=== PATIENT | female | born 1995 | race Caucasian/White ===

== ENCOUNTER 2017-08-20 08:18 | Outpatient (CLI) | payer OTHER ==
[2017-08-20 09:49] VITALS: BP 145/84; PULSE 98; RESP 16; TEMP 98.7
--- NOTE | 2017-09-01 13:47 | P.MSEPDOC ---
Presenting Problems - Arrival Data Date of Arrival on Unit: 08/20/17 Time of Arrival on Unit: 08:17 Mode of Transport: Ambulatory - Complaint OB-Reason for Admission/Chief Complaint: Possible Onset of Labor Medical History - Information : 1 Para: 0 Term: 0 : 0 Abortions: Spontaneous or Elective: 0 Number of Living Children: 0 - Gestational Age Gestational Age by SREEDHAR (wks/days): 39 Weeks and 3 Days - History Complications: GDM Review of Systems - Review of Systems Constitutional: No problems Breast: No problems ENT: No problems Cardiovascular: No problems Respiratory: No problems Gastrointestinal: No problems Genitourinary: No problems Musculoskeletal: No problems Neurological: No problems Skin: No problems Vital Signs - Temperature Temperature: 98.7 F - Pulse Right Brachial Pulse Rate: 98 Pulse Assessment Method: Automatic Cuff - Respirations Respiratory Rate: 16 Oxygen Delivery Method: Room Air - Blood Pressure Right Arm Blood Pressure: 145/84 Blood Pressure Mean: 104 Blood Pressure Source: Automatic Cuff Medical Screen Scoring (Pre) - Cervical Exam Dilation: 1-3 cm = 1 Effacement: More than 50% = 2 Membranes: Intact - Uterine Contractions Frequency: > or = 36 weeks =2 Duration: > 40 seconds = 2 - Maternal Vital Signs Maternal Temperature: N/A Maternal Blood Pressure: N/A Signs of Preeclampsia: N/A Maternal Respirations: N/A - Pain Assessment Pain Location and Character: Abdomen Pain Scale Used: Numeric (1 - 10) Pain Intensity: 6 Pain Management Goal: 4 Pain Description: *Acute Pain Radiation Location: na Pain Frequency: Intermittent Pain Duration: 2 Pain Duration Units: Minutes Pain Behavior: None Exhibited Pain Aggravating Factors: None Non-Pharmacological Interventions: Relaxation Technique - Total Score Total Score (Pre): 7 - Level of Risk Level of Risk: Medium (6-9) Physician Notification (Pre) - Physician Notified Physician Notified Date: 08/20/17 Physician Notified Time: 09:30 Physician/Practitioner Notifed:: Dr. Samuel Spoke With: Dr. Samuel New Order Received: Yes - Notification Comment Comment: orders received to keep another hour and have pt walk the halls. Medical Screen Scoring (Post) - Cervical Exam Dilation: 1-3 cm = 1 Effacement: More than 50% = 2 Membranes: Intact - Uterine Contractions Frequency: > or = 36 weeks =2 Duration: > 40 seconds = 2 Intensity: N/A - Maternal Vital Signs Maternal Temperature: N/A Maternal Blood Pressure: N/A Signs of Preeclampsia: N/A - Pain Assessment Pain Location and Character: Abdomen Pain Scale Used: Numeric (1 - 10) Pain Intensity: 6 Pain Management Goal: 4 Pain Description: *Acute Pain Radiation Location: na Pain Frequency: Intermittent Pain Duration: 2 Pain Duration Units: Minutes Pain Behavior: Vocalization Pain Aggravating Factors: None - Assessment Heart Rate: 135 Heart Rate - NICHD Category: Category I (Normal) = 0 NST: Reactive Position: N/A - Total Score Total Score (Post): 7 - Post Treatment Level of Risk Post Treatment Level of Risk: Medium (6-9) Physician Notification (Post) - Physician Notified Physician Notified Date: 08/20/17 Physician Notified Time: 10:30 Physician/Practitioner Notified:: Dr. Samuel Spoke With: Dr. Samuel New Order Received: Yes - Notification Comment Comment: orders to d/c home Disposition - Disposition OB Disposition: Discharge to home Discharge Date: 08/20/17 Discharge Time: 10:40 I agree with the RN Medical Screening Exam: Yes Risk & Benefit of care provided described in d/c instruction: Yes Diagnosis: FALSE LABOR AT OR AFTER 37 COMPLETED WEEKS OF GESTATION
== END 2017-08-20 10:40 | disposition home or self-care (01) ==
LOC: FBPOP 08:18
PROVIDERS: ATTEND Obstetrics & Gynecology
DX: O47.1 False labor at or after 37 completed weeks of gestation (principal); Z3A.39 39 weeks gestation of pregnancy
CPT/HCPCS: 59025; 99213

== ENCOUNTER 2017-08-21 15:14 | Inpatient (IN) | payer OTHER ==
[2017-08-21] MEDS ORDERED: LIDOCAINE 1% (PF) 10 MG/ML (30 ML SDV) SQ PRN (15:56)
[2017-08-21] MEDS ORDERED: OXYTOCIN 10 UNIT/ML 1 ML VIAL IM PRN (15:56)
[2017-08-21] MEDS ORDERED: METHYLERGONOVINE 0.2 MG/ML 1 ML AMP IM PRN (15:56)
[2017-08-21] MEDS ORDERED: PENICILLIN G POTASSIUM 5,000,000 UNIT in DEXTROSE 5% IN WATER 100 ML IVPB STA ×2 (15:56)
[2017-08-21] MEDS ORDERED: CARBOPROST TROMETHAMINE 250 MCG/ML 1 ML AMP IM PRN (15:56)
[2017-08-21] MEDS ORDERED: TERBUTALINE 1 MG/ML VIAL SQ PRN (15:56)
[2017-08-21] MEDS: LACTATED RINGERS 1,000 ML IV SCH (16:00)
[2017-08-21] MEDS ORDERED: BUTORPHANOL 1 MG/ML 1 ML VIAL IV PRN (16:15)
[2017-08-21 16:16] LABS: Basophils % (A) 0 %; CH 27.6; CHCM 32.4; Eosinophils % (A) 0 %; HDW 2.57; HGB 12.4 gm/dL (11.4-16.0); Luc # (Auto) 0.15; Luc % (Auto) 1; Lymphocytes # (A) 1.1 k/uL (1.0-4.8); Lymphocytes % (A) 9 %; MCH 27.2 pg (25.0-35.0); MCHC 31.7 g/dL (31.0-37.0); MCV 85.7 fL (80.0-100.0); Mean Platelet Volume 8.7; Monocytes # (A) 0.6 k/uL (0-1.0); Monocytes % (A) 5 %; Neutrophils # (A) 10.4 k/uL (1.3-7.7); Neutrophils % (A) 85 %; RBC 4.55 m/uL (3.80-5.40); RDW 15.4 % (11.5-15.5); WBC 12.3 k/uL (3.8-10.6); WBC (Perox) 12.11
[2017-08-21] MEDS ORDERED: SODIUM CHLORIDE 0.9% 100 ML BAG ONE (16:21)
[2017-08-21] MEDS ORDERED: fentaNYL (PF) 50 MCG/ML 5 ML AMP ONE (16:21)
[2017-08-21] MEDS ORDERED: BUPIVACAINE (PF) 0.25% 30 ML VIAL ONE (16:21)
--- NOTE | 2017-08-21 16:22 | P.HPOB ---
History of Present Illness H&P Date: 08/21/17 Chief Complaint: 39-4/7 weeks, active labor the patient is a 21-year-old 1 para 0 admitted at 39-4/7 weeks as established by last menstrual period and confirmed by 19 week ultrasound. She is admitted in active labor with her cervix approximate 6 cm dilated. She has been carlos since yesterday in the afternoon when she previously presented to triage and made no cervical change. On admission, all signs reassuring. Her has been complicated by presumptive gestational diabetes as she could not tolerate the one hour Glucola. testing after 32 weeks was entirely within normal limits and reassuring and her blood sugars were normal throughout. She additionally is known to be Rh- and received RhoGAM at 28 weeks. Lastly she was also found to be group B strep positive. Obstetrical history: 1 para 0 with current statistics listed above. EDC of 08/24/2017 was established by last menstrual period and confirmed by 19 week ultrasound. Laboratory workup demonstrates a blood type of A- with a negative antibody screen. Rubella status is immune. The remainder of her laboratory workup was within normal limits though she did have an ASCUS Pap smear which will be repeated . Initial Glucola was elevated, however she could not tolerate the three-hour glucose tolerance test and therefore has been treated as a gestational diabetic since that time with normal blood sugars throughout as noted above. Group B strep status is positive. gynecologic history: Unremarkable with no history of any infections to include STDs. Review of Systems review of systems is confined to history of present illness. Past Medical History Additional Past Medical History / Comment(s): Hernia History of Any Multi-Drug Resistant Organisms: None Reported Past Surgical History: No Surgical Hx Reported Past Anesthesia/Blood Transfusion Reactions: No Reported Reaction Smoking Status: Never smoker Medications and Allergies Home Medications Medication Instructions Recorded Confirmed Type Pnp-Syjx-Mpqxh Acid 1 cap PO DAILY 06/15/17 08/21/17 History [-U Capsule (formulary)] Allergies Allergy/AdvReac Type Severity Reaction Status Date / Time No Known Allergies Allergy Verified 08/21/17 15:26 Exam - Vital Signs Vital signs: Vital Signs Temp Pulse Resp BP 08/21/17 15:58 97.2 F L 100 18 139/88 Intake and Output 08/21/17 08/21/17 08/21/17 06:59 14:59 22:59 Other: Weight 58.513 kg Patient Weight 08/22/17 06:59 Weight 58.513 kg general, this is a well-developed, well-nourished white female in no acute distress. Her heart has a regular rhythm and rate without murmur. Her lungs are clear to auscultation bilaterally in all galindo. Her abdomen is gravid, nondistended, has normal active bowel sounds, is soft, nontender, and without any palpable masses aside from uterine fundus. Her extremities are without any cyanosis, clubbing, or edema and are nontender to palpation bilaterally. Digital cervical examination demonstrates her cervix to be centimeters dilated, 100% effaced, the vertex in presentation at -2 station. There is a bulging bag of water present. Assessment and Plan (1) Active labor at term Current Visit: Yes Status: Acute Code(s): RVK3013 - SNOMED Code(s): 88331042 (2) Group B streptococcal carriage complicating Current Visit: Yes Status: Acute Code(s): O99.820 - STREPTOCOCCUS B CARRIER STATE COMPLICATING SNOMED Code(s): 213733593839169 (3) Rh negative status during Current Visit: Yes Status: Acute Code(s): O09.899 - SUPERVISION OF OTHER HIGH RISK PREGNANCIES, UNSP TRIMESTER SNOMED Code(s): 761496949 (4) Gestational diabetes Current Visit: Yes Status: Acute Code(s): O24.419 - GESTATIONAL DIABETES MELLITUS IN , UNSP CONTROL SNOMED Code(s): 26453056 Plan: age and is admitted for active management of labor. She has requested an epidural catheter for analgesia which will be placed shortly. She will then undergo artificial rupture of membranes. Antibiotics have been ordered for group B strep prophylaxis. Should she made no significant progress after rupture of membranes, Pitocin augmentation will be added. She will continue undergo close maternal and surveillance and expectant management will continue to be practiced.
[2017-08-21] MEDS ORDERED: BUPIVACAINE (PF) 0.25% 25 ML, fentaNYL (PF) 200 MCG in SODIUM CHLORIDE 0.9% 71 ML EPIDURAL ONE (16:40)
[2017-08-21 16:52] VITALS: BMI 22.1
[2017-08-21] MEDS ORDERED: HYDROCORTISONE 2.5% RECTAL CREAM 30 GM TUBE RECTAL PRN (20:16)
[2017-08-21] MEDS ORDERED: diphenhydrAMINE 50 MG/ML 1 ML VIAL IVP PRN ×2 (20:16)
[2017-08-21] MEDS ORDERED: LANOLIN CREAM 5 GM TUBE TOPICAL PRN (20:16)
[2017-08-21] MEDS ORDERED: ZOLPIDEM 5 MG TAB PO PRN (20:16)
[2017-08-21] MEDS ORDERED: SIMETHICONE 80 MG CHEWABLE PO PRN (20:16)
[2017-08-21] MEDS ORDERED: Acetaminophen-Codeine 300-30mg TAB PO PRN (20:16)
[2017-08-21] MEDS ORDERED: diphenhydrAMINE 50 MG CAP PO PRN (20:16)
[2017-08-21] MEDS ORDERED: ACETAMINOPHEN TAB 325 MG TAB PO PRN (20:16)
[2017-08-21] MEDS ORDERED: BENZOCAINE/MENTHOL SPRAY 1 GM/SPRAY AEROSOL TOPICAL PRN (20:16)
[2017-08-21] MEDS ORDERED: diphenhydrAMINE 25 MG CAP PO PRN (20:16)
[2017-08-21] MEDS ORDERED: WITCH HAZEL 1 EACH MED..PAD TOPICAL PRN (20:16)
--- NOTE | 2017-08-21 20:16 | P.PROBDLV ---
Vaginal Delivery Note - . Vaginal Delivery Note: Findings: Female in the vertex occiput anterior position. Apgars of 9 at 1 minute and 10 at 5 minutes. Weight 5 lbs. 10 oz., 2555 g. Second-degree perineal laceration. Intact, three-vessel cord placenta. EBL 150 mL's. Delivery summary: This is a 21-year-old 1 para 0 woman with an estimated due date of 08/24/2017 who presents at 39-4/7 weeks gestation in active labor. She's had an uncomplicated . Blood type is A- and she is group B strep positive. Following admission prophylactic antibiotics were initiated per protocol. She was 6+ centimeters dilated on admission. She underwent artificial rupture of membranes at 1633 and clear fluid was noted. She reached complete cervical dilation by 1903. She had received an epidural anesthetic and was very comfortable. She began pushing with excellent maternal effort and after an approximately 1 hour second stage of labor she was repositioned, prepped and draped in the modified lithotomy position. With additional maternal effort the head delivered from the left occiput anterior position. Nose and mouth were bulb suctioned. The rest the was rapidly delivered onto the field where the nose and mouth were further bulb suctioned. The was placed on the maternal abdomen. After the cord stopped pulsating infant was cut and the was taken to the warmer for further evaluation. Apgars were 9 at 1 minute and 10 at 5 minutes. Perineum was inspected and a second-degree laceration was noted. This was repaired in the usual fashion with 3-0 Vicryl suture. An intact, three-vessel cord placenta was then expressed and the uterus was massaged and noted to be firm below the level of the umbilicus. The vagina was reinspected and no further lacerations were along the entirety of the right vulvar crease but this was not actively bleeding. All counts were correct and both mother and infant were doing well post delivery in the room.
[2017-08-21] MEDS ORDERED: OXYTOCIN 20 UNITS/1000 ML NS 1,000 ML IV SCH (20:30)
[2017-08-21] MEDS: IBUPROFEN 600 MG TAB PO PRN (23:25)
[2017-08-22] MEDS ORDERED: Rhogam IMMUNE GLOBULIN 1,500 UNIT/1 ML IM ONE (01:11)
[2017-08-22] MEDS: IBUPROFEN 600 MG TAB PO PRN ×3 (05:17→23:58)
--- NOTE | 2017-08-22 08:47 | P.PNOBGVD ---
Subjective - Subjective Patient reports: Reports appetite normal, Reports voiding normally, Reports pain well controlled, Reports ambulating normally : doing well Objective - Latest Vital Signs Latest vital signs: Vital Signs Temp Pulse Resp BP Pulse Ox 08/22/17 04:00 97.8 F 84 16 114/56 97 08/22/17 00:00 98.2 F 84 16 100/62 97 08/21/17 22:04 98.5 F 87 16 125/69 08/21/17 21:34 90 16 132/74 08/21/17 21:04 106 H 16 123/70 08/21/17 20:49 82 16 114/70 08/21/17 20:34 83 16 110/66 08/21/17 20:19 96 16 128/66 08/21/17 20:03 100 18 122/64 08/21/17 16:45 97.2 F L 100 18 08/21/17 15:58 97.2 F L 100 18 139/88 Intake and Output 08/21/17 08/22/17 08/22/17 22:59 06:59 14:59 Other: # Voids 1 1 Weight 58.513 kg - Exam Extremities: Present: normal Abdomen: Present: normal appearance, soft Uterus: Present: normal, firm (The uterine fundus as tonic and nontender at the umbilicus.) - Labs Labs: Abnormal Lab Results - Last 24 Hours (Table) 08/21/17 Range/Units 16:00 WBC 12.3 H (3.8-10.6) k/uL Neutrophils # 10.4 H (1.3-7.7) k/uL Assessment and Plan (1) Active labor at term Current Visit: Yes Status: Acute Code(s): ANF3666 - SNOMED Code(s): 16027000 (2) Group B streptococcal carriage complicating Current Visit: Yes Status: Acute Code(s): O99.820 - STREPTOCOCCUS B CARRIER STATE COMPLICATING SNOMED Code(s): 882513293401391 (3) Rh negative status during Current Visit: Yes Status: Acute Code(s): O09.899 - SUPERVISION OF OTHER HIGH RISK PREGNANCIES, UNSP TRIMESTER SNOMED Code(s): 597821036 (4) Gestational diabetes Current Visit: Yes Status: Acute Code(s): O24.419 - GESTATIONAL DIABETES MELLITUS IN , UNSP CONTROL SNOMED Code(s): 19353129 (5) (normal spontaneous vaginal delivery) Current Visit: Yes Status: Acute Code(s): O80 - ENCOUNTER FOR FULL-TERM UNCOMPLICATED DELIVERY SNOMED Code(s): 94932430 Plan: The infant will continue to be observed for 48 hours as antibiotic prophylaxis had not been initiated early enough. As result, the patient will continue to have close maternal observation and routine care practiced. I do anticipate discharge home tomorrow pending no complications.
[2017-08-22] MEDS: PENICILLIN G POTASSIUM 2,500,000 UNIT in DEXTROSE 5% IN WATER 100 ML IVPB SCH ×2 (09:22)
[2017-08-22] MEDS: LACTATED RINGERS 1,000 ML IV SCH ×2 (09:23→09:24)
[2017-08-22] MEDS: SENNOSIDES-DOCUSATE SODIUM 1 EACH TAB PO SCH ×2 (09:31→19:35)
[2017-08-23] MEDS: IBUPROFEN 600 MG TAB PO PRN ×3 (07:39→19:57)
[2017-08-23] MEDS: SENNOSIDES-DOCUSATE SODIUM 1 EACH TAB PO SCH ×2 (07:39→19:57)
--- NOTE | 2017-08-23 08:57 | P.DS ---
Providers Date of admission: 08/21/17 15:41 Expected date of discharge: 08/23/17 Attending physician: Ghazala Kennedy Primary care physician: Stated None - Discharge Diagnosis(es) (1) Active labor at term Current Visit: Yes Status: Acute (2) Group B streptococcal carriage complicating Current Visit: Yes Status: Acute (3) Rh negative status during Current Visit: Yes Status: Acute (4) Gestational diabetes Current Visit: Yes Status: Acute (5) (normal spontaneous vaginal delivery) Current Visit: Yes Status: Acute Hospital Course: The patient is a 21-year-old 1 para 0 admitted at 39-4/7 weeks in active labor. Her was uncomplicated though she was Rh- and group B strep positive. She did have antibiotic prophylaxis started and underwent artificial rupture of membranes. She progressed fairly quickly to complete after which time she pushed to a normal spontaneous vaginal delivery of a viable 5 lbs. 10 oz. baby girl with Apgars of 9 at 1 minute and 10 at 5 minutes. Her course was unremarkable vital signs remaining stable and her temperature was afebrile throughout. She was deemed stable for discharge by post day #2 was discharged home to follow-up in the office in 6 weeks' time routinely. Discharge instructions included calling for any significantly increased bleeding or foul-smelling lochia, significantly increased fever or abdominal pain, perineal complaints, breast complaints, or anything else that concerned her. She was additionally instructed to have nothing in the vagina for at least 6 weeks time to include intercourse. She understood her instructions and agrees to follow up as noted above. Discharge medications included continue vitamins as she has opted to breast- feed. She additionally was to use omlr-tja-avyrrbc analgesic pain medications as needed. Maternal blood type is A- and cord blood was sent for evaluation for the necessity of RhoGAM prior to discharge. Rubella status is immune. Procedures: #1. Antibiotic prophylaxis #2. Artificial rupture of membranes #3. Normal spontaneous vaginal delivery #4. Repair of perineal laceration #5. Epidural analgesia Patient Condition at Discharge: Good Plan - Discharge Summary New Discharge Prescriptions: No Action Zel-Tcoa-Smbbq Acid [-U Capsule (formulary)] 1 cap PO DAILY Discharge Medication List Ojh-Qxyh-Qtswv Acid [-U Capsule (formulary)] 1 cap PO DAILY 10/31 [History] Follow up Appointment(s)/Referral(s): Sadiq Samuel MD [STAFF PHYSICIAN] - 6 Weeks Discharge Disposition: HOME SELF-CARE
[2017-08-23 13:15] VITALS: PULSE 71
[2017-08-23 17:11] VITALS: BP 118/72; RESP 18; TEMP 97.7
== END 2017-08-23 20:10 | disposition home or self-care (01) | DRG 775 ==
LOC: FBPOP 15:14 → 4FBP 15:41
PROVIDERS: ADMIT Obstetrics & Gynecology; ATTEND Obstetrics & Gynecology
PROC: 10907ZC Drainage of Amniotic Fluid, Therapeutic from Products of Conception, Via Natural or Artificial Opening (ICD-10-PCS; principal; 2017-08-21)
PROC: 3E0R3BZ Introduction of Anesthetic Agent into Spinal Canal, Percutaneous Approach (ICD-10-PCS; principal; 2017-08-21)
PROC: 0KQM0ZZ Repair Perineum Muscle, Open Approach (ICD-10-PCS; principal; 2017-08-21)
PROC: 00HU33Z Insertion of Infusion Device into Spinal Canal, Percutaneous Approach (ICD-10-PCS; principal; 2017-08-21)
PROC: 10E0XZZ Delivery of Products of Conception, External Approach (ICD-10-PCS; principal; 2017-08-21)
DX: O24.429 Gestational diabetes mellitus in childbirth, unspecified control (principal); O26.893 Other specified pregnancy related conditions, third trimester; Z37.0 Single live birth; O99.824 Streptococcus B carrier state complicating childbirth; O70.1 Second degree perineal laceration during delivery; Z3A.39 39 weeks gestation of pregnancy; Z67.91 Unspecified blood type, Rh negative
CPT/HCPCS: 59025; 83036; 85025; 85461; 88307; 99213

== ENCOUNTER 2019-09-30 05:41 | Inpatient (IN) | payer BC ==
[2019-09-30] MEDS ORDERED: OXYTOCIN 10 UNIT/ML 1 ML VIAL IM PRN (05:58)
[2019-09-30] MEDS ORDERED: LIDOCAINE 0.5% (PF) 5 MG/ML (50 ML SDV) SQ PRN (05:58)
[2019-09-30] MEDS ORDERED: METHYLERGONOVINE 0.2 MG/ML 1 ML AMP IM PRN (05:58)
[2019-09-30] MEDS ORDERED: PENICILLIN G POTASSIUM 5,000,000 UNIT in DEXTROSE 5% IN WATER 100 ML IVPB STA ×2 (05:58)
[2019-09-30] MEDS ORDERED: CARBOPROST TROMETHAMINE 250 MCG/ML 1 ML AMP IM PRN (05:58)
[2019-09-30] MEDS ORDERED: TERBUTALINE 1 MG/ML VIAL SQ PRN (05:58)
[2019-09-30] MEDS ORDERED: OXYTOCIN 30 UNITS/500 ML NS 30 UNIT in SALINE 1 500ML.BAG IV SCH (06:00)
[2019-09-30] MEDS ORDERED: LACTATED RINGERS 1,000 ML IV SCH (06:00)
[2019-09-30] MEDS: LACTATED RINGERS 1,000 ML IV SCH ×2 (06:08→06:52)
[2019-09-30] MEDS ORDERED: SODIUM CHLORIDE 0.9% 100 ML BAG ONE (06:56)
[2019-09-30] MEDS ORDERED: ROPIVACAINE 5MG/ML 20ML VIAL ONE (06:56)
[2019-09-30] MEDS ORDERED: fentaNYL (PF) 50 MCG/ML 5 ML AMP ONE (06:56)
[2019-09-30 06:57] LABS: Basophils % (A) 0 %; Eosinophils # (A) 0.1 k/uL (0-0.7); Eosinophils % (A) 1 %; HCT 35.8 % (34.0-46.0); HGB 11.8 gm/dL (11.4-16.0); Lymphocytes % (A) 12 %; MCH 28.6 pg (25.0-35.0); MCV 86.6 fL (80.0-100.0); Mean Platelet Volume 9.1; Monocytes # (A) 0.5 k/uL (0-1.0); Monocytes % (A) 6 %; Neutrophils # (A) 6.3 k/uL (1.3-7.7); Neutrophils % (A) 79 %; Platelet Count 278 k/uL (150-450); RBC 4.14 m/uL (3.80-5.40); RDW 14.9 % (11.5-15.5)
[2019-09-30] MEDS ORDERED: ROPIVACAINE 100 MG, fentaNYL (PF) 200 MCG in SODIUM CHLORIDE 0.9% 76 ML EPIDURAL ONE (08:40)
--- NOTE | 2019-09-30 09:51 | P.HPOB ---
History of Present Illness H&P Date: 09/30/19 Chief Complaint: 38-3/7 weeks, active labor The patient is a 23-year-old 2 para 1001 admitted at 38-3/7 weeks as established by last menstrual period and confirmed by 8 week ultrasound. She is admitted in active labor with all signs reassuring. Her has been uncomplicated though group B strep is positive. She is also known to be Rh- and received RhoGAM at 28 weeks. Obstetrical history: 2 para 1001 with 1 term vaginal delivery without complications. Current statistics listed in history present illness. EDC of 10/10/2019 was established by last menstrual period and confirmed by 8 week ultrasound. Laboratory workup demonstrates a blood type of A- with a negative antibody screen. Rubella status is immune. The remainder of the laboratory workup was within normal limits. Early Glucola as well as second trimester Glucola were within normal limits. Group B strep status is positive. Gynecologic history: Unremarkable with no history of any infections to include STDs. Review of Systems Review of systems is confined to history of present illness. Past Medical History Additional Past Medical History / Comment(s): Hernia History of Any Multi-Drug Resistant Organisms: None Reported Past Surgical History: No Surgical Hx Reported Past Anesthesia/Blood Transfusion Reactions: No Reported Reaction Past Psychological History: No Psychological Hx Reported Smoking Status: Never smoker Past Alcohol Use History: None Reported Past Drug Use History: None Reported - Past Family History Father Family Medical History: Hypertension Medications and Allergies Home Medications Medication Instructions Recorded Confirmed Type Kog-Hymz-Lkbvz Acid 1 cap PO DAILY 06/15/17 09/30/19 History [-U Capsule (formulary)] Allergies Allergy/AdvReac Type Severity Reaction Status Date / Time No Known Allergies Allergy Verified 09/30/19 05:56 Exam Vital Signs Temp Pulse Resp BP Pulse Ox 09/30/19 05:58 97.3 F L 110 H 18 131/80 100 09/30/19 05:56 97.3 F L 110 H 16 131/80 100 Intake and Output 09/29/19 09/30/19 09/30/19 22:59 06:59 14:59 Other: # Voids 1 Weight 63.957 kg In general, this is a well-developed, well-nourished white female in no acute distress. Her heart has a regular rhythm and rate without murmur. Her lungs are clear to auscultation bilaterally in all galindo. Her abdomen is gravid, nondistended, has normal active bowel sounds, is soft, nontender, and without any palpable masses aside from uterine fundus. Her extremities are without any cyanosis, clubbing, or edema and are nontender to palpation bilaterally. Digital cervical examination demonstrates her cervix to be 8 cm dilated, 100% effaced, the vertex in presentation at -1-2 station. Amniotic membranes are intact. Results Result Diagrams: 09/30/19 06:41 Assessment and Plan (1) Active labor at term Current Visit: Yes Status: Acute Code(s): VFW0102 - SNOMED Code(s): 60993257 (2) Group B streptococcal carriage complicating Current Visit: Yes Status: Acute Code(s): O99.820 - STREPTOCOCCUS B CARRIER STATE COMPLICATING SNOMED Code(s): 279182475662353 Plan: The patient is admitted for active management of labor. She will be left with membranes intact until 4 hours following initiation of antibody prophylaxis for group B strep A low she delivers spontaneously prior to this. An epidural catheter has been placed for analgesia. She will otherwise have close maternal and surveillance and expectant management will be practiced.
[2019-09-30] MEDS: PENICILLIN G POTASSIUM 2,500,000 UNIT in DEXTROSE 5% IN WATER 100 ML IVPB SCH ×4 (09:57→16:47)
[2019-09-30] MEDS ORDERED: WITCH HAZEL 1 EACH MED..PAD TOPICAL PRN (11:38)
[2019-09-30] MEDS ORDERED: HYDROcodone/APAP 5-325MG 1 EACH TAB PO PRN (11:38)
[2019-09-30] MEDS ORDERED: HYDROcodone/APAP 7.5-325MG 1 EACH TAB PO PRN (11:38)
[2019-09-30] MEDS ORDERED: HYDROCORTISONE 2.5% RECTAL CREAM 30 GM TUBE RECTAL PRN (11:38)
[2019-09-30] MEDS ORDERED: SIMETHICONE 80 MG CHEWABLE PO PRN (11:38)
[2019-09-30] MEDS ORDERED: LANOLIN CREAM 5 GM TUBE TOPICAL PRN (11:38)
[2019-09-30] MEDS ORDERED: diphenhydrAMINE 25 MG CAP PO PRN (11:38)
[2019-09-30] MEDS ORDERED: diphenhydrAMINE 50 MG/ML 1 ML VIAL IVP PRN ×2 (11:38)
[2019-09-30] MEDS ORDERED: ZOLPIDEM 5 MG TAB PO PRN (11:38)
[2019-09-30] MEDS ORDERED: diphenhydrAMINE 50 MG CAP PO PRN (11:38)
[2019-09-30] MEDS ORDERED: BENZOCAINE/MENTHOL SPRAY 1 GM/SPRAY AEROSOL TOPICAL PRN (11:38)
[2019-09-30] MEDS ORDERED: ACETAMINOPHEN TAB 325 MG TAB PO PRN (11:38)
--- NOTE | 2019-09-30 11:42 | P.PROBDLV ---
Vaginal Delivery Note - . Vaginal Delivery Note: The patient is a 23-year-old 2 para 1001 admitted at 38-3/7 weeks by good dating parameters. She is admitted in active labor with all signs reassuring. Her has been uncomplicated though she is Rh- and received RhoGAM at 28 weeks. She additionally is known to be group B strep positive. As result, she had antibody prophylaxis started and the amniotic membranes were left intact. After she had antibiotics on board for greater than 4 hours, artificial rupture of membranes is carried out demonstrating clear fluid. She made rapid progress to complete and then pushed over the course of approximately 4 contractions to a normal spontaneous vaginal delivery of a viable 6 lbs. 14 oz. baby boy with Apgars of 9 at 1 minute and 9 at 5 minutes delivered in the direct occiput anterior position. The placenta was delivered spontaneously, intact, and grossly normal with a grossly normal three-vessel cord inserted approximately 3 cm from the margin of the placental disc. There was a small second-degree midline perineal laceration, likely over the site of a previous laceration, which was repaired in standard fashion using 3-0 chromic catgut without difficulty. Estimated blood loss for the case approximate 150 mL. There were no complications. All sponge, instrument, and needle counts were correct. Both mother and are resting comfortably in recovery.
[2019-09-30] MEDS ORDERED: OXYTOCIN 20 UNITS/1000 ML NS 1,000 ML IV SCH (11:45)
[2019-09-30] MEDS: IBUPROFEN 600 MG TAB PO PRN ×2 (13:11→18:51)
[2019-09-30] MEDS: SENNOSIDES-DOCUSATE SODIUM 1 EACH TAB PO SCH (21:26)
[2019-10-01] MEDS: IBUPROFEN 600 MG TAB PO PRN ×2 (03:02→10:57)
[2019-10-01] MEDS: SENNOSIDES-DOCUSATE SODIUM 1 EACH TAB PO SCH (08:00)
--- NOTE | 2019-10-01 09:01 | P.DS ---
Providers Date of admission: 09/30/19 05:50 Expected date of discharge: 10/01/19 Attending physician: Sadiq Samuel Primary care physician: Stated None - Discharge Diagnosis(es) (1) Active labor at term Current Visit: Yes Status: Acute (2) Group B streptococcal carriage complicating Current Visit: Yes Status: Acute (3) (normal spontaneous vaginal delivery) Current Visit: No Status: Acute Hospital Course: The patient is a 23-year-old 2 para 1001 admitted at 38-3/7 weeks by good dating parameters perches admitted in active labor with all signs reassuring. Her was uncomplicated aside from group B strep carrier status positivity. She also is known to be Rh- and received RhoGAM at 28 weeks. On labor and delivery, she had antibiotic prophylaxis started and the membranes were left intact until she had had 4 hours of antibody confused at which time she then underwent artificial rupture of membranes of clear fluid. She made fairly quick progress to complete and then pushed to a normal spontaneous vaginal delivery of a viable 6 lbs. 14 oz. baby boy with Apgars of 9 at 1 minute and 9 at 5 minutes. Her course was unremarkable with vital signs are many stable and her temperature was afebrile throughout. She was deemed stable for discharge on day #1 was discharged home to follow-up in the office in 6 weeks' time routinely. Discharge instructions included calling for any significantly increased bleeding or foul-smelling lochia, significantly increased fever abdominal pain, perineal complaints, breast complaints, or anything else that concerned her. She is additionally instructed to have nothing in the vagina for at least 6 weeks time to include intercourse. She understood her instructions and agrees to follow up as noted above. Discharge m edications included only kxta-eai-kxbinbw analgesic pain medications and continued vitamins as she has opted to breast-feed. Maternal blood type is A- and cord blood was sent for evaluation for the necessity of RhoGAM prior to discharge. Rubella status is immune. Plan - Discharge Summary New Discharge Prescriptions: No Action Icz-Budn-Bradu Acid [-U Capsule (formulary)] 1 cap PO DAILY Discharge Medication List Vgy-Bycr-Fxqdp Acid [-U Capsule (formulary)] 1 cap PO DAILY 06/15/17 [History]
[2019-10-01 09:30] VITALS: BP 119/65; PULSE 72; RESP 18; TEMP 98.1
== END 2019-10-01 14:45 | disposition home or self-care (01) | DRG 807 ==
LOC: FBPOP 05:41 → 4FBP 05:50
PROVIDERS: ADMIT Obstetrics & Gynecology; ATTEND Obstetrics & Gynecology
PROC: 10E0XZZ Delivery of Products of Conception, External Approach (ICD-10-PCS; principal; 2019-09-30)
PROC: 0KQM0ZZ Repair Perineum Muscle, Open Approach (ICD-10-PCS; 2019-09-30)
PROC: 00HU33Z Insertion of Infusion Device into Spinal Canal, Percutaneous Approach (ICD-10-PCS; 2019-09-30)
PROC: 3E0R3BZ Introduction of Anesthetic Agent into Spinal Canal, Percutaneous Approach (ICD-10-PCS; 2019-09-30)
DX: O99.824 Streptococcus B carrier state complicating childbirth (principal); Z37.0 Single live birth; O70.1 Second degree perineal laceration during delivery; Z3A.38 38 weeks gestation of pregnancy; Z79.899 Other long term (current) drug therapy; Z82.49 Family history of ischemic heart disease and other diseases of the circulatory system
CPT/HCPCS: 85025; 86850; 86870; 86880; 86900; 86901

== ENCOUNTER 2021-08-28 08:08 | Inpatient (IN) | payer BC, OTHER ==
[2021-08-28] MEDS ORDERED: CARBOPROST TROMETHAMINE 250 MCG/ML 1 ML AMP IM PRN (08:32)
[2021-08-28] MEDS ORDERED: LIDOCAINE 0.5% (PF) 5 MG/ML (50 ML SDV) SQ PRN (08:32)
[2021-08-28] MEDS ORDERED: AMPICILLIN 2,000 MG in SODIUM CHLORIDE 0.9% 100 ML IVPB STA (08:32)
[2021-08-28] MEDS ORDERED: METHYLERGONOVINE 0.2 MG/ML 1 ML AMP IM PRN (08:32)
[2021-08-28] MEDS ORDERED: OXYTOCIN 10 UNIT/ML 1 ML VIAL IM PRN (08:32)
[2021-08-28] MEDS ORDERED: TERBUTALINE 1 MG/ML VIAL SQ PRN (08:32)
[2021-08-28] MEDS: LACTATED RINGERS 1,000 ML IV SCH ×3 (08:55→10:48)
[2021-08-28 09:11] LABS: Basophils % (A) 0 %; Eosinophils # (A) 0.1 k/uL (0-0.7); Eosinophils % (A) 1 %; HCT 38.5 % (34.0-46.0); HGB 13.2 gm/dL (11.4-16.0); Lymphocytes % (A) 10 %; MCH 29.7 pg (25.0-35.0); MCHC 34.1 g/dL (31.0-37.0); MCV 87.1 fL (80.0-100.0); Mean Platelet Volume 8.1; Monocytes # (A) 0.5 k/uL (0-1.0); Monocytes % (A) 5 %; Neutrophils % (A) 83 %; Platelet Count 293 k/uL (150-450); RBC 4.43 m/uL (3.80-5.40); RDW 14.3 % (11.5-15.5); WBC 9.6 k/uL (3.8-10.6)
--- NOTE | 2021-08-28 09:41 | P.HPOB ---
History of Present Illness H&P Date: 08/28/21 Chief Complaint: IUP at 38 and 5/sevenths weeks, active labor This is a 25-year-old 002 at 38-5/7 weeks that presents to labor and delivery with complaints of regular painful contractions. She states contractions became regular early this morning, she is uncomfortable when they happen, and is requesting epidural. Patient has been receiving routine care with Dr. Samuel. Estimated date of confinement of 09/06 based on last menstrual period consistent with 8 week ultrasound. Patient did have COVID-19 in July and underwent testing. Patient does note good movement, denies vaginal bleeding or loss of fluid. On bloodwork this patient is a blood type of A-, rubella status immune, hepatitis B surface Ag negative, HIV negative. Group beta strep culture was positive on 08/18. She did pass her one-hour Glucola screen. Review of Systems Constitutional: Denies chills, Denies fatigue, Denies fever Ears, nose, mouth and throat: Denies headache Cardiovascular: Reports leg edema Respiratory: Denies dyspnea Gastrointestinal: Denies constipation, Denies diarrhea, Denies nausea, Denies vo miting Genitourinary: Reports Past Medical History Additional Past Medical History / Comment(s): Hernia History of Any Multi-Drug Resistant Organisms: None Reported Past Surgical History: No Surgical Hx Reported Past Anesthesia/Blood Transfusion Reactions: No Reported Reaction Smoking Status: Never smoker - Past Family History Father Family Medical History: Hypertension Medications and Allergies Home Medications Medication Instructions Recorded Confirmed Type Xat-Fbjb-Osbhq Acid 1 cap PO DAILY 06/15/17 08/28/21 History [-U Capsule (formulary)] Allergies Allergy/AdvReac Type Severity Reaction Status Date / Time No Known Allergies Allergy Verified 08/28/21 08:24 Exam Osteopathic Statement: *. No significant issues noted on an osteopathic structural exam other than those noted in the History and Physical/Consult. Intake and Output 08/27/21 08/28/21 08/28/21 22:59 06:59 14:59 Other: Weight 64.864 kg Targeted physical exam is performed on this date in general this is a well- nourished well-developed female in no Distress, breathing is noted to be nonlabored, heart has a regular rate and rhythm, abdomen is gravid, on cervical exam per RN she is 5 cm/80/-2. heart tracings are noted to be category 1 and she is carlos irregularly on the monitor. Results Result Diagrams: 08/28/21 09:00 Assessment and Plan (1) Active labor at term Current Visit: No Status: Acute Code(s): WZF8774 - SNOMED Code(s): 21993247 (2) Group B streptococcal carriage complicating Current Visit: No Status: Acute Code(s): O99.820 - STREPTOCOCCUS B CARRIER STATE COMPLICATING SNOMED Code(s): 433900648557533 (3) Rh negative status during Current Visit: No Status: Acute Code(s): O09.899 - SUPERVISION OF OTHER HIGH RISK PREGNANCIES, UNSP TRIMESTER SNOMED Code(s): 390204492 Plan: 25-year-old 002 at 38-5/7 weeks in active labor. Patient is admitted to labor and delivery for expectant management. Known group beta strep positive, will start IV ampicillin. Patient does desire epidural, anesthesia will be notified. Anticipate spontaneous vaginal delivery.
[2021-08-28] MEDS ORDERED: AMPICILLIN 1,000 MG in SODIUM CHLORIDE 0.9% 50 ML IVPB SCH (12:45)
[2021-08-28] MEDS ORDERED: OXYTOCIN 30 UNITS/500 ML NS 30 UNIT in SALINE 1 500ML.BAG IV SCH ×2 (12:45→14:15)
[2021-08-28] MEDS ORDERED: HYDROCORTISONE 2.5% RECTAL CREAM 30 GM TUBE RECTAL PRN (14:05)
[2021-08-28] MEDS ORDERED: diphenhydrAMINE 50 MG/ML 1 ML VIAL IVP PRN ×2 (14:05)
[2021-08-28] MEDS ORDERED: diphenhydrAMINE 50 MG CAP PO PRN (14:05)
[2021-08-28] MEDS ORDERED: LANOLIN CREAM 5 GM TUBE TOPICAL PRN (14:05)
[2021-08-28] MEDS ORDERED: ACETAMINOPHEN TAB 325 MG TAB PO PRN (14:05)
[2021-08-28] MEDS ORDERED: SIMETHICONE 80 MG CHEWABLE PO PRN (14:05)
[2021-08-28] MEDS ORDERED: diphenhydrAMINE 25 MG CAP PO PRN (14:05)
[2021-08-28] MEDS ORDERED: BENZOCAINE/MENTHOL SPRAY 1 GM/SPRAY AEROSOL TOPICAL PRN (14:05)
[2021-08-28] MEDS ORDERED: ZOLPIDEM 5 MG TAB PO PRN (14:05)
--- NOTE | 2021-08-28 14:11 | P.PROBDLV ---
Vaginal Delivery Note - . Vaginal Delivery Note: This is a 25-year-old 3 para 2001 at 30-5/7 weeks that presented to labor and delivery with complaints of regular painful contractions. Patient was noted be 5 cm on admission. Patient had been receiving routine care which has been uncomplicated. Patient was known group B strep positive by rectovaginal culture. Patient was admitted to labor and delivery and IV antibiotics were begun given her positive group beta strep culture. Patient made progress to 6 cm at which time 4 hours had elapsed therefore amniotomy is performed and clear fluid was obtained. Pitocin augmentation of labor was begun given her protracted labor pattern. Patient quickly progressed to complete about 40 minutes later began pushing and had a normal spontaneous vaginal delivery of viable female infant at 1341, weight of 6 lbs. 8 oz. Infant was noted to have a compound right hand at delivery. A spontaneous cry was noted at . After two-minute delay the umbilical cord was doubly clamped and cut and cord blood was taken. The placenta was then delivered spontaneously intact with three-vessel cord being noted. The uterus is noted be firm and below the umbilicus. Lochia was noted to be moderate. Inspection the patient's vaginal vault a first 3 vaginal laceration was noted, this was repaired in the usual fashion with 3-0 Rapide. 3 [id number] sutures were used to obtain closure. Hemostasis was appreciated afterwards. The bladder was drained for approximate 100 mL of clear yellow urine. All counts were noted to be correct 2 at the end of delivery. Patient and tolerated delivery well and are resting comfortably.
[2021-08-28] MEDS: IBUPROFEN 600 MG TAB PO SCH ×2 (14:44→21:24)
[2021-08-28] MEDS ORDERED: ROPIVACAINE 100 MG, fentaNYL (PF). 200 MCG in SODIUM CHLORIDE 0.9% 76 ML EPIDURAL ONE (18:57)
[2021-08-28] MEDS: SENNOSIDES-DOCUSATE SODIUM 1 EACH TAB PO SCH (21:23)
[2021-08-29] MEDS: IBUPROFEN 600 MG TAB PO SCH ×3 (04:29→13:23)
[2021-08-29] MEDS: SENNOSIDES-DOCUSATE SODIUM 1 EACH TAB PO SCH (08:22)
[2021-08-29 08:32] VITALS: BP 111/74; PULSE 72; RESP 17; TEMP 98
--- NOTE | 2021-08-29 08:45 | P.DS ---
Providers Date of admission: 08/28/21 08:32 Expected date of discharge: 08/29/21 Attending physician: Sadiq Samuel Primary care physician: Stated None - Discharge Diagnosis(es) (1) (normal spontaneous vaginal delivery) Current Visit: No Status: Acute Hospital Course: the patient is a 25-year-old 3 para 2001 admitted at 38-5/7 weeks by good dating parameters. She is admitted in active labor with all signs reassuring. Her has been uncomplicated. She is Rh- and received RhoGAM at 28 weeks. She also is noted to be group B strep positive and had antibiotic prophylaxis started upon admission. She additionally had COVID-19 approximately 3-4 weeks ago but recovered without any significant side effects and has had reassuring testing since that time. On labor and delivery, all signs reassuring. Antibody prophylaxis was started as noted above. Her amniotic membranes were left intact until 4 hours had elapsed at [facility] time she underwent artificial rupture of membranes for clear fluid. An epidural catheter had been placed for analgesia. She then had Pitocin augmentation started and progressed rapidly to complete where after she pushed to a normal spontaneous vaginal delivery of a viable 6 lbs. 8 oz. baby girl with Apgars of 9 at 1 minute and 9 at 5 minutes. Her course was unremarkable with vital signs remaining stable and her temperature was afebrile throughout. She was deemed stable for discharge on day #1 was discharged home to follow-up in the office in 6 weeks' time routinely. Discharge instructions included calling for any significantly increased bleeding or foul-smelling lochia, significantly increased fever abdominal pain, perineal complaints, breast complaints, or anything else that concerned her. She was additionally instructed to have nothing in the vagina for at least 6 weeks time to include intercourse. She understood all of her instructions and agrees to follow up as noted above. Discharge medications included only continue vitamins as she has opted to breast-feed as well as xgdy-esb-gyuchpb analgesic pain medications. Maternal blood type is A- and cord blood was sent for evaluation for the necessity of RhoGAM prior to discharge. Rubella status is immune. Procedures: #1. Antibiotic prophylaxis #2. Artificial rupture of membranes #3. Epidural analgesia #4. Pitocin augmentation #5. Normal spontaneous vaginal delivery#6. Repair of perineal laceration Patient Condition at Discharge: Stable Plan - Discharge Summary New Discharge Prescriptions: No Action Xwj-Jbtp-Qzeaw Acid [-U Capsule (formulary)] 1 cap PO DAILY Discharge Medication List Ngy-Qdgj-Qqwxr Acid [-U Capsule (formulary)] 1 cap PO DAILY 06/15/17 [History] Follow up Appointment(s)/Referral(s): Sadiq Samuel MD [STAFF PHYSICIAN] - 6 Weeks Discharge Disposition: HOME SELF-CARE
[2021-08-29] MEDS ORDERED: PRENATAL VIT-IRON-FOLIC ACID 1 EACH CAP PO SCH (09:00)
== END 2021-08-29 14:30 | disposition home or self-care (01) | DRG 768 ==
LOC: FBPOP 08:08 → 4FBP 08:32
PROVIDERS: ADMIT Obstetrics & Gynecology Obstetrics; ATTEND Obstetrics & Gynecology
PROC: 10E0XZZ Delivery of Products of Conception, External Approach (ICD-10-PCS; principal; 2021-08-28)
PROC: 0DQR0ZZ Repair Anal Sphincter, Open Approach (ICD-10-PCS; 2021-08-28)
PROC: 0KQM0ZZ Repair Perineum Muscle, Open Approach (ICD-10-PCS; 2021-08-28)
PROC: 10907ZC Drainage of Amniotic Fluid, Therapeutic from Products of Conception, Via Natural or Artificial Opening (ICD-10-PCS; 2021-08-28)
PROC: 3E033VJ Introduction of Other Hormone into Peripheral Vein, Percutaneous Approach (ICD-10-PCS; 2021-08-28)
DX: O99.824 Streptococcus B carrier state complicating childbirth (principal); Z37.0 Single live birth; O70.20 Third degree perineal laceration during delivery, unspecified; O32.6XX0 Maternal care for compound presentation, not applicable or unspecified; O26.893 Other specified pregnancy related conditions, third trimester; O63.9 Long labor, unspecified; Z3A.38 38 weeks gestation of pregnancy; Z67.91 Unspecified blood type, Rh negative
CPT/HCPCS: 85025; 86850; 86870; 86880; 86900; 86901; 86902; 99213

== ENCOUNTER 2024-12-21 05:41 | Emergency (ER) | payer BC, OTHER ==
[2024-12-21 05:50] VITALS: BP 125/85; PULSE 77; RESP 16; TEMP 97.4
--- NOTE | 2024-12-21 06:15 | ED ---
ENT HPI - General Chief complaint: ENT Stated complaint: left ear pain Time Seen by Provider: 12/21/24 05:55 Source: patient, RN notes reviewed Mode of arrival: ambulatory Limitations: no limitations - History of Present Illness Initial comments: 29-year-old female presents emerged part complaint of left ear pain. Patient states that she has been having increasing pain. She states that she has been having nasal congestion but the ear pain recently started. Patient states she has had multiple ear infections the past feels very similar. No fever reported. Denies any chest pain shortness of breath no other complaints. - Related Data Home Medications Medication Instructions Recorded Confirmed Wyr-Xatw-Soket Acid 1 cap PO DAILY 06/15/17 08/28/21 [-U Capsule (formulary)] Previous Rx's Medication Instructions Recorded Amoxic-Pot Clav 875-125Mg 1 tab PO Q12HR #20 tab 12/21/24 [Augmentin 875-125] Allergies Allergy/AdvReac Type Severity Reaction Status Date / Time No Known Allergies Allergy Verified 12/21/24 05:46 Review of Systems ROS Statement: Those systems with pertinent positive or pertinent negative responses have been documented in the HPI. ROS Other: All systems not noted in ROS Statement are negative. Past Medical History Additional Past Medical History / Comment(s): Hernia History of Any Multi-Drug Resistant Organisms: None Reported Past Surgical History: No Surgical Hx Reported Past Anesthesia/Blood Transfusion Reactions: No Reported Reaction Past Psychological History: No Psychological Hx Reported Smoking Status: Never smoker Past Alcohol Use History: Rare Past Drug Use History: None Reported - Past Family History Father Family Medical History: Hypertension General Exam Limitations: no limitations General appearance: alert, in no apparent distress Head exam: Present: atraumatic, normocephalic, normal inspection Eye exam: Present: normal appearance, PERRL, EOMI. Absent: scleral icterus, conjunctival injection, periorbital swelling ENT exam: Present: normal oropharynx, mucous membranes moist. Absent: TM's normal bilaterally (Erythema) Neck exam: Present: normal inspection, full ROM. Absent: tenderness, meningismus, lymphadenopathy Respiratory exam: Present: normal lung sounds bilaterally. Absent: respiratory distress, wheezes, rales, rhonchi, stridor Cardiovascular Exam: Present: regular rate, normal rhythm, normal heart sounds. Absent: systolic murmur, diastolic murmur, rubs, gallop, clicks Course Vital Signs 12/21/24 05:47 Temperature 97.4 F L Pulse Rate 77 Respiratory 16 Rate Blood Pressure 125/85 O2 Sat by Pulse 99 Oximetry Medical Decision Making - Medical Decision Making Was pt. sent in by a medical professional or institution ([facility] Cardenas, [employer], urgent care, hospital, or residential...) When possible be specific @ -No Did you speak to anyone other than the patient for history (EMS, parent, family, police, friend...)? What history was obtained from this source @ -No Did you review nursing and triage notes (agree or disagree)? Why? @ -I reviewed and agree with nursing and triage notes Were old charts reviewed (outside hosp., previous admission, EMS record, old EKG, old radiological studies, urgent care reports/EKG's, residential records)? Report findings @ -No old charts were reviewed Differential Diagnosis (chest pain, altered mental status, abdominal pain women, abdominal pain men, vaginal bleeding, weakness, fever, dyspnea, syncope, headache, dizziness, GI bleed, back pain, seizure, CVA, palpatations, mental health, musculoskeletal)? @ -Otitis media otitis externa EKG interpreted by me (3pts min.). @ -none X-rays interpreted by me (1pt min.). @ -None done CT interpreted by me (1pt min.). @ -None done U/S interpreted by me (1pt. min.). @ -None done What testing was considered but not performed or refused? (CT, X-rays, U/S, labs)? Why? @ -None What meds were considered but not given or refused? Why? @ -None Did you discuss the management of the patient with other professionals (professionals i.e. [facility]ILIP Cardenas, [employer], lab, RT, psych nurse, social security assessor, rougher for cement, teacher, driver's license reviewing officer, pillowcase turner)? Give summary @ -No Was smoking cessation discussed for >3mins.? @ -No Was critical care preformed (if so, how long)? @ -No Were there social determinants of health that impacted care today? How? (Homelessness, low income, unemployed, alcoholism, drug addiction, tr ansportation, low edu. Level, literacy, decrease access to med. care, detention, rehab)? @ -No Was there de-escalation of care discussed even if they declined (Discuss DNR or withdrawal of care, Hospice)? DNR status @ -No What co-morbidities impacted this encounter? (DM, HTN, Smoking, COPD, CAD, Cancer, CVA, ARF, Chemo, Hep., AIDS, mental health diagnosis, sleep apnea, morbid obesity)? @ -None Was patient admitted / discharged? Hospital course, mention meds given and route, prescriptions, significant lab abnormalities, going to OR and other pertinent info. @Discharge patient has otitis media given dose of Augmentin discharged with prescription for Augmentin return parameters discussed. Undiagnosed new problem with uncertain prognosis? @ -No Drug Therapy requiring intensive monitoring for toxicity (Heparin, Nitro, Insulin, Cardizem)? @ -No Were any procedures done? @ -No Diagnosis/symptom? @ -Otitis media Acute, or Chronic, or Acute on Chronic? @ -Acute Uncomplicated (without systemic symptoms) or Complicated (systemic symptoms)? @ -Uncomplicated Side effects of treatment? @ -No Exacerbation, Progression, or Severe Exacerbation? @ -No Poses a threat to life or bodily function? How? (Chest pain, [place], [place], pneumonia, PE, COPD, DKA, ARF, appy, cholecystitis, CVA, Diverticulitis, Homicidal, Suicidal, threat to staff... and all critical care pts) @ -No Disposition Clinical Impression: Otitis media Disposition: HOME SELF-CARE Condition: Stable Instructions (If sedation given, give patient instructions): Earache (ED) Additional Instructions: Please return to the Emergency Department if symptoms worsen or any other concerns. Prescriptions: Amoxic-Pot Clav 875-125Mg [Augmentin 875-125] 1 tab PO Q12HR #20 tab Is patient prescribed a controlled substance at d/c from ED?: No Referrals: None,Stated [REFERRING] - 1-2 days Time of Disposition: 06:15
[2024-12-21] MEDS: AMOXIC-POT CLAV 875-125MG 1 EACH TAB PO STA (06:55)
[2024-12-21] MEDS: IBUPROFEN 600 MG TAB PO STA (06:56)
== END 2024-12-21 07:00 | disposition home or self-care (01) ==
LOC: EC 05:41
DX: H66.92 Otitis media, unspecified, left ear (principal)
CPT/HCPCS: 99282